=== PATIENT | male | born 1940 | race Caucasian/White ===

== ENCOUNTER 2018-02-23 19:54 | Emergency (ER) | payer MEDICARE ==
[~2018-02-23] VITALS: Ht 172.7 cm; Wt 75.0 kg
[~2018-02-23 19:54] MED LIST: ALBU8I INH; ARIC5TAB PO; ASPI325T PO; CARB200T14 PO; FLUO20TA20 PO; FURO1TAB93 PO; KCL20 PO; LORA-474 PO; METO50 PO; NAME10SO PO; PROZ20CA11 PO; SIMV40TA PO
[2018-02-23 21:25] VITALS: BP 121/60; PULSE 61; RESP 20; TEMP 98.1; O2SAT 97
[2018-02-23] MEDS ORDERED: FLUO60TA PO (22:13)
[2018-02-23] MEDS ORDERED: POTA8TAB PO (22:13)
[2018-02-23] MEDS ORDERED: CARB100C (22:13)
[2018-02-23] MEDS ORDERED: CARB200T (22:13)
[2018-02-23 22:15] VITALS: BP 125/57; PULSE 56; RESP 18; O2SAT 100
[2018-02-23] MEDS ORDERED: MIRTA15 PO (22:47)
[2018-02-23] MEDS ORDERED: CARB200C6 PO (22:47)
[2018-02-23] MEDS ORDERED: ROSU1TAB8 PO (22:47)
[2018-02-23] MEDS ORDERED: FURO1TAB60 PO (22:47)
[2018-02-23] MEDS ORDERED: FLAX1000 PO (22:47)
[2018-02-23] MEDS ORDERED: LISI10TA3 PO (22:47)
[2018-02-23] MEDS ORDERED: FERR325T18 PO (22:47)
[2018-02-23] MEDS ORDERED: VENTAER INH (22:47)
[2018-02-23] MEDS ORDERED: MULT1TAB PO (22:47)
[2018-02-23] MEDS ORDERED: ASPI-183 PO (22:47)
[2018-02-23] MEDS ORDERED: AMLO2.5T PO (22:47)
[2018-02-23] MEDS ORDERED: VITA10004 PO (22:47)
[2018-02-23] MEDS ORDERED: [UNRECOGNIZED DRUG - CODE] PO (22:47)
[2018-02-23] MEDS ORDERED: MECL1TAB42 PO (22:47)
--- NOTE | 2018-02-23 23:04 | PD ---
HPI Chief Complaint: Respiratory Symptoms Time Seen by Provider: 22:08 Travel History International Travel<30 days: No Contact w/Intl Traveler<30days: No Traveled to known affect area: No History of Present Illness HPI Patient 77-year-old male with a history of COPD on 2 L nasal cannula at home presents emergency department for evaluation of shortness of breath worsening over the past few days. Patient states he becoming fatigued even with minimal exertion. No history of CHF. No chest pain no cough no congestion no fevers no abdominal pain no nausea vomiting. PFSH Past Medical History Arthritis: Yes Asthma: No Anxiety: Yes Depression: Yes Heart Rhythm Problems: No Cancer: No Cardiovascular Problems: Yes (HTN, CABG x5, Aortic valve repair) High Cholesterol: No Chest Pain: Yes Congestive Heart Failure: Yes COPD: Yes Cerebrovascular Accident: Yes (TIA'S) Coronary Artery Disease: Yes Endocrine: No Genitourinary: No Hypertension: Yes Immune Disorder: No Implanted Vascular Access Dvce: Yes Musculoskeletal: Yes Neurologic: Yes Psychiatric: Yes (PTSD) Reproductive: Yes (PENILE IMPLANT) Respiratory: Yes (COPD) Migraines: No Myocardial Infarction: Yes Seizures: No Sleep Apnea: No Past Surgical History Abdominal Surgery: No AICD: No Arteriovenous Shunt: No Cardiac Surgery: Yes (5 VESSEL CABG 2001) Coronary Artery Bypass Graft: Yes (5 bypass 2011) Ear Surgery: No Endocrine Surgery: No Eye Surgery: No Genitourinary Surgery: Yes (PENILE IMPLANT) Gynecologic Surgery: No Insulin Pump: No Joint Replacement: No Oral Surgery: No Pacemaker: No Thoracic Surgery: No Other Surgery: Yes Social History Alcohol Use: No Tobacco Use: No Substance Use: No Allergies-Medications (Allergen,Severity, Reaction): Coded Allergies: No Known Allergies (Unverified Allergy, Unknown, 02/23/18) Reported Meds & Prescriptions Reported Meds & Active Scripts Active Albuterol Neb (Albuterol Sulfate) 2.5 Mg/3 Ml Neb 2.5 Mg NEB Q4HR NEB PRN Azithromycin 250 Mg Tab 250 Mg PO DIRECTED Take 2 tabs (500 mg) on day 1 then 1 tab daily x 4 days. Reported Amlodipine (Amlodipine Besylate) 2.5 Mg Tab 2.5 Mg PO DAILY Rosuvastatin (Rosuvastatin Calcium) 20 Mg Tab 20 Mg PO DAILY Meclizine 25 (Meclizine HCl) 25 Mg Tab 1 Tab PO DAILY Mirtazapine 15 Mg Tab 15 Mg PO HS Lisinopril 10 Mg Tab 10 Mg PO DAILY Ferrous Sulfate 325 Mg (65 Mg Iron) Tablet 325 Mg PO DAILY Vitamin D3 (Cholecalciferol (Vitamin D3)) 5,000 Unit Tab.rapdis 1 Tab PO DAILY Centrum Silver Adult 50+ (Multiple Vitamins W/ Minerals) 0.4 Mg-300 Mcg-250 Mcg Tab 1 Tab PO DAILY Vitamin B12 Tr (Cyanocobalamin) 1,000 Mcg Tab 1,000 Mcg PO DAILY Flaxseed Oil (Flaxseed (Linseed)) 1,000 Mg Cap 1 Cap PO DAILY Lasix (Furosemide) 40 Mg Tab 40 Mg PO DAILY Carbamazepine ER 12 HR (Carbamazepine) 200 Mg Cap 100 Mg PO TID Aspirin 325 Mg Tab 325 Mg PO DAILY Ventolin Hfa 18 GM Inh (Albuterol Sulfate) 90 Mcg/Act Aer 2 Puff INH Q6H PRN Fluoxetine (Fluoxetine HCl) 60 Mg Tab 60 Mg PO DAILY Potassium Chloride ER (Potassium Chloride) 8 Meq Tab 8 Meq PO DAILY Carbamazepine 200 Mg Tab 100 Mg TID Ventolin Hfa (Albuterol Sulfate) 8 Gm Aero 2 Puff INH Q6 * SHAKE WELL BEFORE USE * Lasix (Furosemide) 40 Mg Tab 40 Mg PO DAILY Aspirin 325 mg (Aspirin) 325 Mg Tab 325 Mg PO DAILY Carbamazepine Er (Carbamazepine) 200 Mg Tab 200 Mg PO TID Review of Systems Except as stated in HPI: all other systems reviewed are Neg Physical Exam Narrative GENERAL: Well-developed pleasant appearing male in no obvious distress. Nasal cannula in place. Speaks in full sentences SKIN: Focused skin assessment warm/dry. HEAD: Atraumatic. Normocephalic. EYES: Pupils equal and round. No scleral icterus. No injection or drainage. ENT: No nasal bleeding or discharge. Mucous membranes pink and moist. TMs clear bilaterally, oropharynx clear moist NECK: Trachea midline. No JVD. CARDIOVASCULAR: Regular rate and rhythm. No murmur appreciated. RESPIRATORY: No accessory muscle use. Perhaps a very faint bibasilar rales otherwise lung sounds clear to auscultation. Breath sounds equal bilaterally. GASTROINTESTINAL: Abdomen soft, non-tender, nondistended. Hepatic and splenic margins not palpable. MUSCULOSKELETAL: No obvious deformities. No clubbing. No cyanosis. No edema. NEUROLOGICAL: Awake and alert. No obvious cranial nerve deficits. Motor grossly within normal limits. Normal speech. PSYCHIATRIC: Appropriate mood and affect; insight and judgment normal. Data Data Last Documented VS Vital Signs Date Time Temp Pulse Resp B/P (MAP) Pulse Ox O2 Delivery O2 Flow Rate FiO2 02/24/18 01:50 02/23/18 23:18 99 Nasal Cannula 2.00 02/23/18 22:15 56 18 02/23/18 21:25 98.1 Orders Orders Electrocardiogram (02/23/18 23:02) B-Type Natriuretic Peptide (02/23/18 23:02) Ckmb (Isoenzyme) Profile (02/23/18 23:02) Complete Blood Count With Diff (02/23/18 23:02) Comprehensive Metabolic Panel (02/23/18 23:02) Magnesium (Mg) (02/23/18 23:02) Prothrombin Time / Inr (Pt) (02/23/18 23:02) Act Partial Throm Time (Ptt) (02/23/18 23:02) Troponin I (02/23/18 23:02) Chest, Single Ap (02/23/18 23:02) Ecg Monitoring (02/23/18 23:02) Iv Access Insert/Monitor (02/23/18 23:02) Oximetry (02/23/18 23:02) Oxygen Administration (02/23/18 23:02) Sodium Chloride 0.9% Flush (Ns Flush) (02/23/18 23:15) Ct Pulmonary Angiogram (02/23/18 ) CKMB (02/23/18 22:45) CKMB% (02/23/18 22:45) Iohexol 350 Inj (Omnipaque 350 Inj) (02/24/18 00:34) Azithromycin (Zithromax) (02/24/18 01:45) Ed Discharge Order (02/24/18 01:43) Labs Laboratory Tests Test 02/23/18 22:45 White Blood Count 6.9 TH/MM3 Red Blood Count 4.14 MIL/MM3 Hemoglobin 14.0 GM/DL Hematocrit 41.8 % Mean Corpuscular Volume 101.1 FL Mean Corpuscular Hemoglobin 33.8 PG Mean Corpuscular Hemoglobin Concent 33.4 % Red Cell Distribution Width 13.0 % Platelet Count 162 TH/MM3 Mean Platelet Volume 8.4 FL Neutrophils (%) (Auto) 42.5 % Lymphocytes (%) (Auto) 39.2 % Monocytes (%) (Auto) 12.8 % Eosinophils (%) (Auto) 4.8 % Basophils (%) (Auto) 0.7 % Neutrophils # (Auto) 2.9 TH/MM3 Lymphocytes # (Auto) 2.7 TH/MM3 Monocytes # (Auto) 0.9 TH/MM3 Eosinophils # (Auto) 0.3 TH/MM3 Basophils # (Auto) 0.0 TH/MM3 CBC Comment DIFF FINAL Differential Comment Prothrombin Time 10.1 SEC Prothromb Time International Ratio 1.0 RATIO Activated Partial Thromboplast Time 27.6 SEC Blood Urea Nitrogen 16 MG/DL Creatinine 1.12 MG/DL Random Glucose 77 MG/DL Total Protein 6.8 GM/DL Albumin 3.6 GM/DL Calcium Level 8.4 MG/DL Magnesium Level 2.2 MG/DL Alkaline Phosphatase 81 U/L Aspartate Amino Transf (AST/SGOT) 23 U/L Alanine Aminotransferase (ALT/SGPT) 26 U/L Total Bilirubin 0.2 MG/DL Sodium Level 143 MEQ/L Potassium Level 4.0 MEQ/L Chloride Level 106 MEQ/L Carbon Dioxide Level 26.5 MEQ/L Anion Gap 11 MEQ/L Estimat Glomerular Filtration Rate 64 ML/MIN Total Creatine Kinase 134 U/L Creatine Kinase MB 1.4 NG/ML Troponin I LESS THAN 0.02 NG/ML B-Type Natriuretic Peptide 79 PG/ML MDM Medical Decision Making Medical Screen Exam Complete: Yes Emergency Medical Condition: Yes Differential Diagnosis COPD exacerbation, pneumonia, CHF, PE. Narrative Course Patient room to the emergency department, does have a medical history of PEs was on blood thinners now, his labs do show minimally elevated white blood cell count but he does not meet surgical criteria. Curb 65 score is 1 low risk group. PSA is class III intermediate risk group. This is in the overall clinical picture of discussed the patient and he can consider going home with antibiotics as an outpatient. This is a very subtle pneumonia findings: Last 24 hours Impressions Chest X-Ray 02/23/18 2302 Signed Impressions: Service Date/Time: Friday, February 23, 2018 23:17 - CONCLUSION: Mild bibasilar consolidation, left more so than right. Borderline and mild cardiomegaly. Terell Chacon MD CT Angiography 02/23/18 0000 Signed Impressions: Service Date/Time: February 00:24 - CONCLUSION: 1. No pulmonary embolus. 2. Emphysema and chronic appearing atelectasis/scarring. There are bilateral nodular areas as above and followup noncontrast chest CT is recommended in approximately 3 months. 3. Upper limits of normal to mildly enlarged nonspecific mediastinal and upper abdominal lymph nodes. 4. Cholelithiasis. 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 He would like to go home currently. I discussed at length him return to ED criteria symptomatic management. Refills nebulizer fluid as below. He is stable for discharge. Diagnosis Primary Impression: SOB (shortness of breath) Additional Impression: Pneumonia Med/Other Pt SpecificInfo: Prescription(s) given Scripts Albuterol Neb (Albuterol Neb) 2.5 Mg/3 Ml Neb 2.5 MG NEB Q4HR NEB Y for SHORTNESS OF BREATH, #60 NEBULE 0 Refills Prov: Ramirez Yap MD 02/24/18 Azithromycin (Azithromycin) 250 Mg Tab 250 MG PO DIRECTED for Infection, #6 TAB 0 Refills Take 2 tabs (500 mg) on day 1 then 1 tab daily x 4 days. Prov: Ramirez Yap MD 02/24/18 Disposition: 01 DISCHARGE HOME Condition: Stable Ramirez Yap MD February 23, 2018 23:04
[2018-02-23] MEDS ORDERED: SODIUM CHLORIDE 0.9% FLUSH 10 ML FLUSH IVF PRN (23:15)
[2018-02-23 23:28] LABS: AUTOMATED NEUTROPHIL # 2.9 TH/MM3 (1.8-7.7); BASOPHIL % 0.7 % (0.0-2.0); EOSINOPHIL # 0.3 TH/MM3 (0-0.4); EOSINOPHIL % 4.8 % (0.0-4.0); HEMATOCRIT 41.8 % (39.0-51.0); LYMPH % 39.2 % (9.0-44.0); LYMPHOCYTE # 2.7 TH/MM3 (1.0-4.8); MEAN CELL VOLUME 101.1 FL (80.0-100.0); MEAN CORPUSCULAR HEMOGLOBIN 33.8 PG (27.0-34.0); MEAN CORPUSCULAR HGB CONC 33.4 % (32.0-36.0); MEAN PLATELET VOLUME 8.4 FL (7.0-11.0); MONO % 12.8 % (0.0-8.0); MONOCYTE # 0.9 TH/MM3 (0-0.9); NEUT % 42.5 % (16.0-70.0); PLATELET COUNT 162 TH/MM3 (150-450); RED BLOOD COUNT 4.14 MIL/MM3 (4.50-5.90); WHITE BLOOD COUNT 6.9 TH/MM3 (4.0-11.0)
[2018-02-23 23:38] LABS: PROTHROMBIN TIME - PATIENT 10.1 SEC (9.8-11.6)
--- NOTE | 2018-02-23 23:48 | RADRPT ---
EXAM DATE/TIME: 02/23/2018 23:17 [facility] COMPARISON: CHEST PA & LAT, March 16, 2013, 7:45. INDICATIONS : SOB X 4 days MEDICAL HISTORY : Coronary artery disease SURGICAL HISTORY : Open heart surgery in 2013 ENCOUNTER: Initial ACUITY: 4 - 6 days PAIN SCORE: 0/10 LOCATION: Bilateral chest FINDINGS: Left greater than right basilar consolidation present. No large effusion seen. No pneumothorax. There is mild cardiomegaly, slightly increased from before. Patient has had previous median sternotom y with CABG and aortic valve replacement. CONCLUSION: Mild bibasilar consolidation, left more so than right. Borderline and mild cardiomegaly. Terell Chacon MD on February 23, 2018 at 23:45 Board Certified Radiologist. This report was verified electronically.
[2018-02-23 23:51] LABS: ALT (GPT) 26 U/L (12-78)
[2018-02-23 23:55] LABS: ALKALINE PHOSPHATASE 81 U/L (45-117); TOTAL BILIRUBIN ADULT 0.2 MG/DL (0.2-1.0); TOTAL PROTEIN 6.8 GM/DL (6.4-8.2); TROPONIN I LESS THAN 0.02 NG/ML (0.02-0.05)
[2018-02-24] LABS: ALBUMIN 3.6 GM/DL (3.4-5.0); AST (GOT) 23 U/L (15-37); BICARBONATE 26.5 MEQ/L (21.0-32.0); BLOOD UREA NITROGEN 16 MG/DL (7-18); CALCIUM 8.4 MG/DL (8.5-10.1); CHLORIDE 106 MEQ/L (98-107); CREATININE 1.12 MG/DL (0.60-1.30); GLOMERULAR FILTRATION RATE 64 ML/MIN (>89); GLUCOSE,RANDOM 77 MG/DL (74-106); MAGNESIUM 2.2 MG/DL (1.5-2.5); SODIUM (NA) 143 MEQ/L (136-145)
[2018-02-24] MEDS ORDERED: IOHEXOL 350 MG/ML 10 ML VIAL (for RAD DIAG) IVCONTRAST ONE (00:34)
--- NOTE | 2018-02-24 00:48 | RADRPT ---
EXAM DATE/TIME: 02/24/2018 00:24 [facility] COMPARISON: CHEST SINGLE AP, February 23, 2018, 23:17. CHEST PA & LAT, March 16, 2013, 7:45. INDICATIONS : Shortness of breath. IV CONTRAST: 75 cc Omnipaque 350 (iohexol) IV RADIATION DOSE: 9.39 CTDIvol (mGy) MEDICAL HISTORY : Stroke. Cardiovascular disease Hypertension. SURGICAL HISTORY : CABG ENCOUNTER: Initial ACUITY: 1 day PAIN SCALE: 4/10 LOCATION: Bilateral chest TECHNIQUE: Volumetric scanning of the chest was performed using a pulmonary embolism protocol MIP images were re constructed. Using automated exposure control and adjustment of the mA and/or kV according to patien t size, radiation dose was kept as low as reasonably achievable to obtain optimal diagnostic quality images. DICOM format image data is available electronically for review and comparison. Follow-up recommendations for detected pulmonary nodules are based at a minimum on nodule size and pa tient risk factors according to Fleischner Society Guidelines. FINDINGS: There is no pulmonary embolus. Moderate to severe centrilobular, upper lobe predominant emphysema. There is left greater than right pleural and parenchymal scarring. There is associated volume loss, mostly on the left. Bilateral basi lar atelectasis present. There is a rounded area of consolidation posteriorly of the left lung base a nd measures 1.3 x 3.1 cm in greatest transaxial dimension, probably focal rounded atelectasis. A 7 mm pulmonary nodule is seen of the right middle lobe, series 3 a 2 image 56. No pleural effusion. No pn eumothorax. Previous median sternotomy and aortic valve replacement and CABG. Scattered mediastinal lymph nodes measuring up to 12 mm in greatest short axis dimension are noted. A few similar size lymph nodes are seen near the GE junction in the upper abdomen. Multiple small stones are seen in the gallbladder.. CONCLUSION: 1. No pulmonary embolus. 2. Emphysema and chronic appearing atelectasis/scarring. There are bilateral nodular areas as above a nd followup noncontrast chest CT is recommended in approximately 3 months. 3. Upper limits of normal to mildly enlarged nonspecific mediastinal and upper abdominal lymph nodes. 4. Cholelithiasis. Terell Chacon MD on February 24, 2018 at 0:42 Board Certified Radiologist. This report was verified electronically.
[2018-02-24] MEDS ORDERED: AZIT250T3 PO (01:43)
[2018-02-24] MEDS ORDERED: ALBU0.08 NEB (01:43)
[2018-02-24] MEDS ORDERED: AZITHROMYCIN 250 MG TAB PO ONE (01:45)
--- NOTE | 2018-02-24 19:38 | EKG ---
Date Performed: 02/23/2018 Time Performed: 23:44:59 PTAGE: 77 years EKG: SINUS BRADYCARDIA WITH FIRST DEGREE AV BLOCK INDETERMINATE AXIS RIGHT BUNDLE BRANCH BLOCK S EPTAL MYOCARDIAL INFARCTION ABNORMAL ECG Since the PREVIOUS TRACING , no significant change noted PREVIOUS TRACING 03/14/2013 @ 19.18 DOCTOR: Jc Howell Interpretating Date/Time 02/24/2018 19:37:56
== END 2018-02-24 02:02 | disposition home or self-care (01) ==
LOC: NEPC 19:54
DX: J18.9 Pneumonia, unspecified organism (principal); I11.0 Hypertensive heart disease with heart failure; I50.9 Heart failure, unspecified
CPT/HCPCS: 71045; 71275; 80053; 82550; 82552; 83735; 83880; 84484; 85025; 85610; 85730; 93005; 99285; Q9967